=== PATIENT | female | born 1995 | race American Indian/Alaskan Native ===

== ENCOUNTER 2019-06-04 09:53 | Emergency (ER) | payer OTHER ==
--- NOTE | 2019-06-04 11:24 | Emergency Department Report ---
HPI - General Chief Complaint: Syncope Time Seen by Provider: 06/04/19 11:03 - [facility] HPI: Room 1 The patient is a 23-year-old female presented to chief complaint syncope. The patient was working at [employer] stating she is observing a wound debridement being p erformed when she began to feel lightheaded and had a syncopal episode. The patient reports she was coming to near the nurse's station when she had a second syncopal episode. Patient states sounds were muffled prior to her second episode. Patient denied ever having chest pain, shortness breath or headache. Patient denies pain of any type. When asked how she is feeling down the patient replies "fine." The patient states she will return approximately 2 hour flight approximately 2 weeks ago Location: [See above] Duration: [See above] Quality: [See above] Severity: [See above] Modifying factors: [see above] Context: [see above] Mode of transportation: [not driving] ED Past Medical Hx - Past Medical History Previous Medical History?: No - Surgical History Past Surgical History?: No - Family History Family history: no significant - Social History Smoking Status: Never Smoker Substance Use Type: None (denies illicit drug use), Alcohol (occasional) ED Review of Systems ROS: Stated complaint: PASSED OUT TWICE Other details as noted in HPI Constitutional: no symptoms reported Eyes: denies: eye pain ENT: denies: throat pain Respiratory: denies: shortness of breath Cardiovascular: denies: chest pain, palpitations Endocrine: no symptoms reported Gastrointestinal: denies: nausea, vomiting Genitourinary: denies: dysuria Musculoskeletal: denies: back pain Neurological: denies: headache Physical Exam - Physical Exam Vital Signs: Vital Signs 06/04/19 10:45 Temperature 98.3 F Pulse Rate 70 Respiratory 18 Rate Blood Pressure 113/67 O2 Sat by Pulse 98 Oximetry Vital Signs 06/04/19 06/04/19 10:45 12:48 Temperature 98.3 F Pulse Rate 70 64 Respiratory 18 18 Rate Blood Pressure 113/67 Blood Pressure 114/59 [Right] O2 Sat by Pulse 98 100 Oximetry Physical Exam: GENERAL: The patient is well-developed well-nourished female lying on stretcher not appearing to be in acute distress. [] HEENT: Normocephalic. Atraumatic. Extraocular motions are intact. Patient has moist mucous membranes. NECK: Supple. No meningitic signs are noted. Trachea midline CHEST/LUNGS: Clear to auscultation. There is no respiratory distress noted. HEART/CARDIOVASCULAR: Regular. There is no tachycardia. There is no gallop rub or murmur. ABDOMEN: Abdomen is soft, nontender. Patient has normal bowel sounds. There is no abdominal distention. SKIN: There is no rash. There is no edema. There is no diaphoresis. NEURO: The patient is awake, alert, and oriented. The patient is cooperative. The patient has no focal neurologic deficits. The patient has normal speech. Cranial nerves II through XII grossly intact, no drift MUSCULOSKELETAL: There is no evidence of acute injury. ED Course Vital Signs 06/04/19 10:45 Temperature 98.3 F Pulse Rate 70 Respiratory 18 Rate Blood Pressure 113/67 O2 Sat by Pulse 98 Oximetry ED Medical Decision Making - Lab Data Result diagrams: 06/04/19 11:34 06/04/19 11:34 Laboratory Tests 06/04/19 06/04/19 06/04/19 10:07 11:34 11:34 WBC 3.8 L RBC 3.95 Hgb 12.1 Hct 35.9 MCV 91 MCH 31 MCHC 34 RDW 12.9 L Plt Count 211 Lymph % (Auto) 23.6 [place] % (Auto) 10.8 H Eos % (Auto) 0.8 Baso % (Auto) 0.5 Lymph # 0.9 L [place] # 0.4 Eos # 0.0 Baso # 0.0 Seg Neutrophils % 64.3 Seg Neutrophils # 2.4 D-Dimer < 135.00 Sodium Potassium Chloride Carbon Dioxide Anion Gap BUN Creatinine Estimated GFR BUN/Creatinine Ratio Glucose POC Glucose 108 H Calcium Total Creatine Kinase CK-MB (CK-2) CK-MB (CK-2) Rel Index Troponin T TSH Free T4 HCG, Qual 06/04/19 06/04/19 06/04/19 11:34 11:34 11:34 WBC RBC Hgb Hct MCV MCH MCHC RDW Plt Count Lymph % (Auto) [place] % (Auto) Eos % (Auto) Baso % (Auto) Lymph # [place] # Eos # Baso # Seg Neutrophils % Seg Neutrophils # D-Dimer Sodium 139 Potassium 4.2 Chloride 102.3 Carbon Dioxide 25 Anion Gap 16 BUN 10 Creatinine 0.6 L Estimated GFR > 60 BUN/Creatinine Ratio 17 Glucose 91 POC Glucose Calcium 9.0 Total Creatine Kinase 191 H CK-MB (CK-2) 1.0 CK-MB (CK-2) Rel Index 0.5 Troponin T < 0.010 TSH 1.560 Free T4 1.00 HCG, Qual Negative - EKG Data -: EKG Interpreted by Me EKG shows normal: sinus rhythm Rate: bradycardia (56 bpm) - EKG Data When compared to previous EKG there are: previous EKG unavailable Interpretation: nonspecific ST-T wave antonio (T-wave inversions in leads 3, aVF and V3.) - Radiology Data Radiology results: report reviewed (CT head), image reviewed (CT head) [facility] [address] [place] [address] Cat Scan Report Signed Patient: SKY LUNA MR#: [id number] : 1995 Acct:[id number] Age/Sex: 23 / F ADM Date: 06/04/19 Loc: ED Attending Dr: Ordering Physician: VINCE STONE MD Date of Service: 06/04/19 Procedure(s): CT head/brain wo con Accession Number(s): [id number] cc: VINCE STONE MD CT head/brain wo con INDICATION / CLINICAL INFORMATION: 23 years Female; syncope. TECHNIQUE: Routine CT head without contrast. All CT scans at this location are performed using CT dose reduction for ALARA by means of automated exposure control. COMPARISON: None. FINDINGS: BRAIN / INTRACRANIAL CONTENTS: No acute hemorrhage, mass effect, midline shift, hydrocephalus, or acute, large territorial infarct. No chronic infarct or focal atrophy. Normal brain volume and ventricular/sulcal size for age. No significant white matter abnormality. CRANIOCERVICAL JUNCTION: No significant abnormality. ORBITS: No significant abnormality of visualized orbits. SINUSES / MASTOIDS: No significant abnormality of the visualized paranasal sinuses or mastoid air cells. ADDITIONAL FINDINGS: None. IMPRESSION: 1. No focal mass, hemorrhage, hydrocephalus, or acute, large territorial infarct. Signer Name: Christinao Suazo MD, III Signed: 06/04/2019 1:04 PM Workstation Name: [id number] Transcribed By: HR Dictated By: Christiano Suazo MD Electronically Authenticated By: Christiano Suazo MD Signed D ate/Time: 06/04/19 1304 DD/ 1303 TD/TT: - Differential Diagnosis vasovagal syncope, PE, intracranial mass, symptomatically anemia Critical care attestation.: If time is entered above; I have spent that time in minutes in the direct care of this critically ill patient, excluding procedure time. ED Disposition Clinical Impression: Vasovagal syncope Disposition: DC-01 TO HOME OR SELFCARE Is pt being admited?: No Does the pt Need Aspirin: No Condition: Stable Instructions: Syncope (ED) Additional Instructions: Return to the emergency department immediately should you develop worsening symptoms, fever, inability to tolerate food or liquid or any other concerns. Referrals: BRANDIE DICK MD [Primary Care Provider] - 3-5 Days Time of Disposition: 13:30
[2019-06-04 11:58] LABS: Basophils % (Auto) 0.5 % (0.0-1.8); Eosinophils % (Auto) 0.8 % (0.0-4.3); Hematocrit 35.9 % (30.3-42.9); Hemoglobin 12.1 gm/dl (10.1-14.3); Lymphocytes # (Auto) 0.9 K/mm3 (1.2-5.4); Lymphocytes % (Auto) 23.6 % (13.4-35.0); Mean Corpuscular HGB Conc 34 % (30-34); Mean Corpuscular Volume 91 fl (79-97); Monocytes # (Auto) 0.4 K/mm3 (0.0-0.8); Monocytes % (Auto) 10.8 % (0.0-7.3); Platelet Count 211 K/mm3 (140-440); Red Blood Count 3.95 M/mm3 (3.65-5.03); Red Cell Distribution Width 12.9 % (13.2-15.2)
[2019-06-04 12:19] LABS: BUN/Creatinine Ratio 17; Blood Urea Nitrogen 10 mg/dL (7-17); Hemolysis Index 35
--- NOTE | 2019-06-04 13:09 | Cat Scan Report ---
CT head/brain wo con INDICATION / CLINICAL INFORMATION: 23 years Female; syncope. TECHNIQUE: Routine CT head without contrast. All CT scans at this location are performed using CT dos e reduction for ALARA by means of automated exposure control. COMPARISON: None. FINDINGS: BRAIN / INTRACRANIAL CONTENTS: No acute hemorrhage, mass effect, midline shift, hydrocephalus, or acu te, large territorial infarct. No chronic infarct or focal atrophy. Normal brain volume and ventricul ar/sulcal size for age. No significant white matter abnormality. CRANIOCERVICAL JUNCTION: No significant abnormality. ORBITS: No significant abnormality of visualized orbits. SINUSES / MASTOIDS: No significant abnormality of the visualized paranasal sinuses or mastoid air ariel ls. ADDITIONAL FINDINGS: None. IMPRESSION: 1. No focal mass, hemorrhage, hydrocephalus, or acute, large territorial infarct. Signer Name: Christiano Suazo MD, III Signed: 06/04/2019 1:04 PM Workstation Name: [id number]
[2019-06-04 14:08] VITALS: BP 137/80
== END 2019-06-04 14:19 | disposition home or self-care (01) ==
LOC: ED 09:53
DX: R55 Syncope and collapse (principal)
CPT/HCPCS: 36415; 70450; 80048; 82550; 82553; 82962; 84439; 84443; 84484; 84703; 85025; 85379; 93005; 93010; 99284